=== PATIENT | female | born 1955 | race Caucasian/White ===

== ENCOUNTER 2019-10-26 09:06 | Inpatient (IN) ==
[2019-10-26] MEDS ORDERED: SODIUM CHLORIDE 0.9% INJ SCH (11:30)
[2019-10-26] MEDS ORDERED: NEXIUM IV SCH (11:30)
--- NOTE | 2019-10-26 11:42 | EKG Report ---
Test Performed on : 10/26/2019 11:34:15 AM Test Reason : chest pain Blood Pressure : / mmHG Vent. Rate : 074 BPM Atrial Rate : 074 BPM P-R Int : 156 ms QRS Dur : 134 ms QT Int : 428 ms P-R-T Axes : 073 -36 -01 degrees QTc Int : 475 ms Normal sinus rhythm. Left axis deviation Right bundle branch block Septal infarct , age undetermined Abnormal ECG When compared with ECG of 28-OCT-2015 09:59, Septal infarct is now present Confirmed by Tyrone Shafer MD ([id number]) on 10/26/2019 7:49:00 PM
[2019-10-26 12:11] LABS: ALLEN TEST NO; BE 3.3 mmoll (-3.0-3.0); BLOOD TYPE ARTERIAL; HCO3-(ACT) 27.5 mmoll (20.0-26.0); METHB 1.1 % (0.0-1.5); MODALITY ROOM AIR; O2HB 95.7 % (95.0-99.0); PCO2(98.6) 36 mmHg (35-45); PO2(98.6) 84 mmHg (60-100); SAMPLE BLOOD; SAO2 98.7 % (95.0-100.0); THB 12.6 g/dL (11.5-17.4); pH(98.6) 7.48 (7.35-7.45)
--- NOTE | 2019-10-26 12:42 | Diag Imaging Result Doc PS360 ---
EXAM: CT THORAX W/CONTRAST 10/26/2019 HISTORY: Left upper lobe mass TECHNIQUE: This exam was performed using automated exposure control, adjustment of mA or kV according to patient size, and/or use of iterative reconstruction technique. COMMENT: The current examination is compared with 08/26/2017. The aorta is not distended and there is no evidence of dissection. There is calcification in the left anterior descending coronary artery. There are no apparent filling defects in the pulmonary arteries. There is no evidence of significant adenopathy. There is no evidence of acute bony abnormality. There is a cyst in the left hepatic lobe which was also present at the time the previous study. There is bullous emphysema bilaterally. There is a somewhat lobulated nodule present adjacent to the major fissure in the superior segment of the left lower lobe measuring almost 15 mm in diameter. There is a somewhat microlobulated contour with spiculation of the borders of this nodule and it was not present at the time the previous study. The pneumothorax which was present on the left at the time the previous study is no longer present. There is a nodule anteriorly in the left apex on image 20 measuring 9 mm in diameter which is not calcified and was not present at the time the previous study. There is a nodule measuring over 6 mm on image 31 in the left upper lobe which was not present previously. There is small and poorly defined nodular opacities posteriorly in the right lower lobe on image 105 which were not present on the previous study. There are tree-in-bud opacities present anteriorly in the right middle lobe which were not present previously. IMPRESSION: Multiple pulmonary nodules as described above which were not apparently present on 08/26/2017. The nodule in the superior segment of the left lower lobe is particularly suspicious in appearance. The possibility of metastatic disease cannot be excluded. Severe COPD. Electronically signed by Silverio Duggan 10/26/2019 12:40 PM
[2019-10-26] MEDS: SOLU-MEDROL IV SCH ×2 (13:49→20:44)
[2019-10-26] MEDS: PROTONIX IV SCH (13:50)
[2019-10-26] MEDS: AZACTAM 1 GM in NS 50 ML IV SCH ×2 (13:50→20:46)
[2019-10-26] MEDS: SODIUM CHLORIDE 0.9% INJ SCH (13:54)
[2019-10-26] MEDS: ZITHROMAX 500 MG/NS 500 MG/250 ML IVPB IV SCH (15:23)
[2019-10-26] MEDS: NORCO-10 PO PRN ×2 (15:33→23:38)
[2019-10-26] MEDS: NS 1,000 ML IV SCH (19:30)
[2019-10-26] MEDS: ADVAIR 250/50 DISKUS INH SCH (20:05)
[2019-10-26] MEDS: XANAX PO SCH (20:46)
--- NOTE | 2019-10-26 21:33 | HISTORY AND PHYSICAL ---
CHIEF COMPLAINT: Shortness of breath, cough, wheezing for the last 1 week. HISTORY OF PRESENT ILLNESS: She is a 64-year-old white female who was evaluated in my office last week with the above problems. Chest x-ray showed left upper lobe mass, a spiculated lesion which is new. She was treated as an outpatient, failed to improve, and came back with continuation of symptoms. Admitted to the hospital for acute COPD exacerbation and also evaluation of the spiculated mass in the left upper lobe which is new compared with previous exams in 2018. As a result, a hospital admission was warranted. She denies any chest pain. She is also feeling dehydrated. PAST MEDICAL HISTORY: Right bundle branch block, cervical spondylosis C5-C6, COPD, CAD with a stent in the circumflex in, December [address] Verdin, depression, migraine headaches, chronic tobacco abuse, spontaneous pneumothorax on the left side 10%, resolving, history of positive PPD, treated with INH prophylaxis. PAST SURGICAL HISTORY: Stent placed in the circumflex by Dr. Verdin in [place], partial hysterectomy, total knee arthroplasty on the left side as well as the right knee. ALLERGIES: Reported to penicillin. MEDICATIONS: Combivent inhaler 1 puff b.i.d., Advair 250/50, 1 puff daily, Xanax 0.5 p.o. b.i.d., lisinopril 2.5 daily, Brilinta 90 mg daily, atorvastatin 40 mg daily, Prozac 40 daily, metoprolol 25 daily. Recently was treated with steroids and antibiotics. SOCIAL HISTORY: with 2 kids. Lives in [place]. Smoking 1 pack a day for last 40 years. Retired mental health care worker. FAMILY HISTORY: Father of accident at 42. Mom of heart attack at 34. HEALTH MAINTENANCE: Influenza vaccine May 2019, pneumococcal 2002. Last tetanus 2013. Mammography August 2019. DEXA scan 2014. Colonoscopy [address] Gonzalez. REVIEW OF SYSTEMS: HEENT: No headache, no vision problem. No earache. No sore throat. Cardiopulmonary: No chest pain. Has shortness of breath, cough, and wheezing. GI: No nausea, vomiting, or abdominal pain. : No history of hesitancy, frequency, or dysuria. Extremities: No swelling of legs. No joint pain. Neurologic: No focal symptoms or weakness. PHYSICAL EXAMINATION: VITAL SIGNS: Temperature is 97, pulse 73. Vitals are stable. HEENT: Atraumatic, normocephalic. Pupils equal, reactive to light. TMs are normal. Nose and throat congested. NECK: Supple. No lymphadenopathy. No goiter. CHEST: Bilateral wheezing. Distant heart sounds. ABDOMEN: Belly is soft, nontender. Good bowel sounds. No peripheral edema or cyanosis. No obvious neurological deficits. INVESTIGATIONS: ABG: pH of 7.48, pCO2 of 36, pO2 of 84, bicarb of 27. ProBNP is normal. Chest x-ray: COPD changes with left upper lobe spiculated mass. EKG: Normal sinus with right bundle branch block. ASSESSMENT AND PLAN: 1. A 64-year-old white female admitted to the hospital for acute chronic obstructive pulmonary disease exacerbation with failure of outpatient treatment. We will use IV Zithromax and Azactam. Bronchodilators. 2. Impending dehydration. IV fluids. 3. Coronary artery disease with stent in the circumflex. Has been on Brilinta, aspirin and beta blockers. 4. Depression with anxiety, on Prozac and Xanax. 5. Initiate vaccination protocol. 6. Left upper lobe spiculated mass which is a new finding. Will get a CT of the chest. Based on that, further recommendations will be followed. cc: Yaakov Rodriguez MD
[2019-10-27] MEDS ORDERED: PNEUMOVAX 23 IM ONE (02:21)
[2019-10-27] MEDS: SOLU-MEDROL IV SCH ×3 (03:24→18:57)
[2019-10-27] MEDS: AZACTAM 1 GM in NS 50 ML IV SCH ×3 (03:24→18:57)
[2019-10-27] MEDS: ADVAIR 250/50 DISKUS INH SCH ×2 (08:20→21:04)
[2019-10-27] MEDS: LIPITOR PO SCH (09:02)
[2019-10-27] MEDS: XANAX PO SCH ×2 (09:02→21:43)
[2019-10-27] MEDS: TOPROL XL PO SCH (09:02)
[2019-10-27] MEDS: PRINIVIL PO SCH (09:02)
[2019-10-27] MEDS: PROZAC PO SCH (09:04)
[2019-10-27] MEDS: ZITHROMAX 500 MG/NS 500 MG/250 ML IVPB IV SCH (11:12)
[2019-10-27] MEDS: SODIUM CHLORIDE 0.9% INJ SCH (11:29)
[2019-10-27] MEDS: PROTONIX IV SCH (11:29)
--- NOTE | 2019-10-27 20:50 | PROGRESS NOTE ---
DATE: 10/27/2019 SUBJECTIVE: The patient is a little better. Still cough and shortness of breath and wheezing. CT of the chest. Findings reviewed with Silverio Duggan. The patient has a suspicious lesion 1.4 spiculated lesion on the left superior segment of lower lobe. It is hard to biopsy. The patient is taking Brilinta. OBJECTIVE: Vitals: Stable. HEENT: Within normal limits. Neck: Supple. Chest: Is bilateral air entry. Heart: Sounds are regular. Belly is soft, nontender. Good bowel sounds. No obvious neurological deficits. ASSESSMENT AND PLAN: 1. Acute chronic obstructive pulmonary disease exacerbation. Continue on IV fluids, IV steroids, IV antibiotics with Azactam and Zithromax and DVT, GI prophylaxis. 2. Coronary artery disease, stable. Hold on Brilinta and will ask Dr. Flores consult about further evaluation and based on that further recommendations will be followed. LEVEL OF DOCUMENTATION: 25 minutes. cc: Yaakov Rodriguez MD
[2019-10-27] MEDS: NS 1,000 ML IV SCH (21:46)
[2019-10-28] MEDS: AZACTAM 1 GM in NS 50 ML IV SCH ×3 (03:48→18:42)
[2019-10-28] MEDS: NS 1,000 ML IV SCH ×3 (03:49→21:36)
[2019-10-28] MEDS: SOLU-MEDROL IV SCH ×3 (03:53→18:42)
[2019-10-28] MEDS: DUONEB (A & A) INH PRN (09:25)
[2019-10-28] MEDS: ADVAIR 250/50 DISKUS INH SCH ×2 (09:29→20:39)
[2019-10-28] MEDS: LIPITOR PO SCH (10:37)
[2019-10-28] MEDS: PRINIVIL PO SCH (10:37)
[2019-10-28] MEDS: TOPROL XL PO SCH (10:37)
[2019-10-28] MEDS: PROZAC PO SCH (10:39)
[2019-10-28] MEDS: XANAX PO SCH ×2 (10:39→21:34)
[2019-10-28] MEDS: PROTONIX IV SCH (10:45)
[2019-10-28] MEDS: SODIUM CHLORIDE 0.9% INJ SCH (10:45)
[2019-10-28] MEDS: ZITHROMAX 500 MG/NS 500 MG/250 ML IVPB IV SCH (11:18)
[2019-10-28] MEDS ORDERED: COLACE PO PRN (19:24)
--- NOTE | 2019-10-28 20:18 | PROGRESS NOTE ---
DATE: 10/28/2019 SUBJECTIVE: The patient is getting better and decreased shortness of breath, cough, and wheezing. PHYSICAL EXAMINATION: Vital Signs: Temperature is 98 degrees. Vitals are stable. HEENT: Within normal limits. Neck: Supple. Chest: Bilateral air entry. Heart: Sounds are regular. Abdomen: Belly is soft, nontender. Neurologic: No obvious deficits. INVESTIGATIONS: None reported. ASSESSMENT AND PLAN: 1. Acute chronic obstructive pulmonary disease exacerbation. Continue IV steroids and Azactam and Zithromax. 2. Left lower lobe superior segment nodule and bilateral nodules suspicious and discussed with Dr. Flores. Will be treated as an outpatient and we will maybe get a PET scan. 3. Initiate vaccination protocol. 4. CAD, stable. LEVEL OF DOCUMENTATION: 25 minutes. cc: Yaakov Rodriguez MD MTDD
[2019-10-28] MEDS: NORCO-10 PO PRN (21:34)
[2019-10-29] MEDS: SOLU-MEDROL IV SCH ×3 (02:41→18:38)
[2019-10-29] MEDS: AZACTAM 1 GM in NS 50 ML IV SCH ×3 (02:41→18:38)
[2019-10-29] MEDS: NS 1,000 ML IV SCH ×2 (07:43→23:10)
[2019-10-29] MEDS: DUONEB (A & A) INH PRN (07:51)
[2019-10-29] MEDS: ADVAIR 250/50 DISKUS INH SCH ×2 (07:51→19:57)
[2019-10-29] MEDS: PROZAC PO SCH (09:50)
[2019-10-29] MEDS: XANAX PO SCH ×2 (09:50→23:10)
[2019-10-29] MEDS: BRILINTA PO SCH ×2 (09:50→09:55)
[2019-10-29] MEDS: LIPITOR PO SCH (09:50)
[2019-10-29] MEDS: PRINIVIL PO SCH (09:50)
[2019-10-29] MEDS: TOPROL XL PO SCH (09:52)
[2019-10-29] MEDS: PROTONIX IV SCH (11:29)
[2019-10-29] MEDS: SODIUM CHLORIDE 0.9% INJ SCH (11:30)
[2019-10-29] MEDS: ZITHROMAX 500 MG/NS 500 MG/250 ML IVPB IV SCH (13:28)
--- NOTE | 2019-10-29 17:02 | PROGRESS NOTE ---
DATE: 10/29/2019 SUBJECTIVE: The patient is doing better, out of the bed. I spoke to Dr. Flores and he wants to treat this tree-in-bud with IV antibiotics, presently Zithromax and steroids, and will resume her cardiac medicine, maybe outpatient PET scan. Follow up on these nodules. PHYSICAL EXAMINATION: Temperature is 98 degrees, pulse 79, vitals are stable. Physical exam, no change. ASSESSMENT AND PLAN: 1. Left upper lobe suspicious nodule. We will do outpatient PET scan. CEA levels were normal. Continue on Azactam and Zithromax along with steroids and intravenous fluids. 2. Deep venous thrombosis and gastrointestinal prophylaxis as per order sheet. 3. Initiate vaccination protocol prior to the discharge. 4. We will discharge in the morning and follow up outpatient PET scan through Dr. Flores, explained to the patient, she is agreeable. LEVEL OF DOCUMENTATION: 25 minutes. cc: Yaakov Rodriguez MD
[2019-10-29] MEDS ORDERED: ZOFRAN IV PRN (18:27)
[2019-10-30] MEDS: NS 1,000 ML IV SCH (02:37)
[2019-10-30] MEDS: AZACTAM 1 GM in NS 50 ML IV SCH (04:17)
[2019-10-30] MEDS: SOLU-MEDROL IV SCH (05:08)
[2019-10-30 07:27] VITALS: BP 164/73
[2019-10-30] MEDS ORDERED: PREVNAR 13 IM ONE (08:25)
[2019-10-30] MEDS: TOPROL XL PO SCH (09:04)
[2019-10-30] MEDS: LIPITOR PO SCH (09:04)
[2019-10-30] MEDS: PROZAC PO SCH (09:04)
[2019-10-30] MEDS: PRINIVIL PO SCH (09:05)
[2019-10-30] MEDS: BRILINTA PO SCH (09:05)
[2019-10-30] MEDS: XANAX PO SCH (09:06)
[2019-10-30] MEDS: ADVAIR 250/50 DISKUS INH SCH (09:20)
--- NOTE | 2019-10-30 15:25 | HEMO/ONC CONSULTATION ---
DATE: 10/30/2019 REASON FOR CONSULTATION: Suspicious lung lesion. HISTORY OF PRESENT ILLNESS: This is a 64-year-old female who was evaluated in the office of Dr. Rodriguez for shortness of breath, cough and wheezing over the last week. Chest x-ray in the office showed a left upper lobe mass spiculated lesion which was new. She was treated as an outpatient and failed to improve and came back with continuation of symptoms. He admitted her to the hospital for acute COPD exacerbation on 10/26/2019. CT chest was performed which shows multiple pulmonary nodules which were not present on a previous chest CT in August 2017, a nodule in the superior segment of the left lower lobe was particular suspicious in appearance. PAST MEDICAL HISTORY: Right bundle branch block, cervical spondylosis C5-C6, COPD, CAD with a stent, depression, migraine headaches, chronic tobacco abuse, spontaneous pneumothorax on the left side, resolved. History of positive PPD treated with INH prophylaxis. PAST SURGICAL HISTORY: Stent placed in circumflex, partial hysterectomy, total knee arthroplasty on the left as well as the right knee. SOCIAL HISTORY: Smokes 1 pack a day for the last 40 years. ALLERGIES: Penicillin. HOME MEDICATIONS: Albuterol, Xanax, atorvastatin, Colace, fluoxetine, Advair Diskus, Combivent Respimat, lisinopril, Medrol Dosepak, Z-Johnie, metoprolol succinate and Brilinta. REVIEW OF SYSTEMS: The patient denied any problems this morning. Review of systems was negative. VITAL SIGNS: Temperature 98.1 degrees, pulse rate 58, respiratory rate 18, blood pressure 164/73. O2 saturation 98% on room air. She is in 0/10 pain. PHYSICAL EXAMINATION: General: The patient was in no acute distress. HEENT: Sclerae anicteric. PERRLA. Oral mucosa was normal. Respiratory: Lung sounds were clear to auscultation. Cardiovascular: Normal S1, S2. Heart rate and rhythm normal. Gastrointestinal: Abdomen soft, nontender, nondistended. Positive bowel sounds. Extremities: No lower extremity edema noted. Neurological: Alert and oriented x3. Moves all 4 extremities at will. LABORATORY: ProBNP 243. CEA 2.2. RADIOLOGY: Chest CT shows multiple pulmonary nodules. The nodule in the superior segment of the left lower lobe is particularly suspicious in appearance, metastatic disease cannot be excluded. ASSESSMENT AND PLAN: 1. Left upper lobe suspicious nodule. We will do an outpatient PET scan. The patient's CEA was 2.2. We will follow up in the next 1 to 2 weeks with the patient in the office. 2. Chronic obstructive pulmonary disease exacerbation. The patient was sent home with Azactam and Zithromax along with a steroid pack. She will follow up with Dr. Rodriguez as necessary, post- discharge. Dictated by SELMA Varghese for Drake Flores MD cc: MD Yaakov Ballesteros MD [facility]
--- NOTE | 2019-10-30 19:58 | DISCHARGE SUMMARY ---
ADMISSION DATE: 10/26/2019 DISCHARGE DATE: 10/30/2019 DISCHARGING DIAGNOSIS: 1. Acute chronic obstructive pulmonary disease exacerbation with possible tree-in-bud infiltrate in the right lower lobe. 2. New onset of left superior segment of lower lobe spiculated lesion with some noncalcified nodules, etiology to be determined. 3. Right bundle branch block. 4. Cervical spondylosis C5-C6. 5. Coronary artery disease with a stent in the circumflex in December 2018. 6. Depression. 7. Migraine headaches. 8. Chronic tobacco abuse. 9. Spontaneous pneumothorax on the left side 10%. 10. History of positive PPD, treated with INH prophylaxis. CONSULTATIONS: Drake Flores MD telephone consult. BRIEF HISTORY: Please see the history and physical that was done on 10/26/2019. In brief, she is a 64-year-old white female admitted to the hospital with cough, shortness of breath, wheezing, failure of outpatient treatment. Chest x-ray showed interval development of left upper lobe spiculated lesion. She continues to smoke. HOSPITAL COURSE: She was given IV fluids, oxygen, IV antibiotics, bronchodilators. The patient was given as Azactam and Zithromax. The patient has been on Brilinta for 1 year until December of this year. CT scan findings worrisome with Dr. Olga Lidia Jr. The nodule is about 14 mm on the left lung. It is hard to biopsy because of the scapula. She will be high risk for pneumothorax. She is already on Brilinta. I spoke to Dr. Flores. He wants to continue antibiotics for 2 weeks and schedule for outpatient PET scan and the patient was advised to quit smoking. Besides patient is on Brilinta which needs to be stopped 5 days before any biopsy. The patient agreed upon the plan of care at this time. LABORATORY DATA: As follows: ABG pH is 7.48, pCO2 36, PO2 84 on room air, proBNP normal, CEA level 2.2. IMAGING: CT of the chest. Findings are multiple pulmonary nodules, mostly worrisome is a left superior segment lower lobe 1.4 cm spiculated. DISCHARGE INSTRUCTIONS: Pneumococcal vaccine 13, 10/30/2019. Combivent 1 puff b.i.d., Advair 250/50 1 puff b.i.d., Xanax 0.5 p.o. b.i.d., nebulizers every 6 hours as needed, lisinopril 2.5 daily, Brilinta 90 mg daily, Lipitor 40 daily, Prozac 40 daily, metoprolol 25 daily, Colace 100 mg daily, Medrol Dosepak, Zithromax 5 mg daily for 10 days. Follow up in my office as well as with Dr. Flores for PET scan. cc: MD Drake William MD
== END 2019-10-30 09:59 | disposition home or self-care (01) | DRG 192 ==
LOC: DIRADM 09:06 → EDIPHOLD 10:28 → 4N 14:30
PROVIDERS: ADMIT Internal Medicine; ATTEND Internal Medicine